=== PATIENT | male | born 1955 | race African-American/Black ===

== ENCOUNTER 2025-04-28 04:25 | Inpatient (IN) | payer OTHER ==
[~2025-04-28] VITALS: Ht 172.7 cm; Wt 71.7 kg
[2025-04-28 04:27] VITALS: O2SAT 100
[2025-04-28 05:24] LABS: HEMATOCRIT. 33.9 % (42.0-52.0); HEMOGLOBIN. 11.3 g/dL (14.0-18.0); MEAN PLATELET VOLUME 8.0 fl (7.4-10.4); PLATELET 258 x1000/uL (130-400); RED BLOOD CELL COUNT 3.52 mill/uL (4.7-6.1); RED CELL DISTRIBUTION WIDTH 15.0 % (11.6-14.6)
[2025-04-28 05:29] LABS: CREATININE 1.9 mg/dL (0.6-1.3)
[2025-04-28 05:30] LABS: ASPARTATE AMINOTRANSFERASE 54 IU/L (<34); ETHANOL BLOOD < 10 mg/dL (<10); UREA NITROGEN BLOOD 18 mg/dL (9-23)
[2025-04-28 05:31] LABS: BILIRUBIN DIRECT 0.2 mg/dL (<=3.0)
[2025-04-28 05:32] LABS: BILIRUBIN TOTAL 0.5 mg/dL (0.1-1.0); PHOSPHORUS 2.8 mg/dL (2.5-4.9); PROTEIN TOTAL 6.6 g/dL (6.0-8.3)
[2025-04-28 06:09] LABS: INR 1.0
[2025-04-28 06:15] LABS: BG BASE EXCESS 0.6 mmol/L (-2.0-3.0); BG CARBOXYHEMOGLOBIN 1.4 % (0.5-1.5); BG DEOXYHEMOGLOBIN 3.3 % (0.0-5.0); BG FRACTION INSPIRED OXYGEN 21; BG HCO3 ACT 25.2 mmol/L (21.0-28.0); BG METHEMOGLOBIN 0.1 % (0.5-1.5); BG OXYGEN SATURATION 96.6 % (94.0-98.0); BG OXYHEMOGLOBIN 95.2 % (94.0-98.0); BG PCO2 40.4 mmHg (35.0-48.0); BG PH 7.413 (7.350-7.450); BG PO2 87.7 mmHg (83.0-108.0); BG SAMPLE SITE RIGHT BRACHIAL; BG TOTAL HEMOGLOBIN 11.9 g/dL (13.5-17.5); BG VENT MODE ROOM AIR
[2025-04-28 06:21] LABS: CLARITY URINE CLEAR (CLEAR); COLOR URINE YELLOW (YELLOW); GLUCOSE URINE NEGATIVE (NEGATIVE); KETONES URINE NEGATIVE (NEGATIVE); LEUKOCYTE ESTERASE URINE NEGATIVE (NEGATIVE); NITRITE URINE NEGATIVE (NEGATIVE); OCCULT BLOOD URINE NEGATIVE (NEGATIVE); PH URINE 8.5 (4.5-8.0); PROTEIN URINE 1+ (NEGATIVE); SPECIFIC GRAVITY URINE 1.009 (1.005-1.030); UROBILINOGEN URINE 0.2 E.U./dL (0.2-1.0)
[2025-04-28] MEDS ORDERED: DEXTROSE 50% WATER 50ML SYRINGE IV ONE (07:06)
[2025-04-28 07:10] LABS: *AMPHETAMINES SCREEN URINE NEGATIVE (NEGATIVE); *BARBITURATES SCREEN URINE NEGATIVE (NEGATIVE); *BENZODIAZEPINES SCREEN URINE NEGATIVE (NEGATIVE); *COCAINE SCREEN URINE NEGATIVE (NEGATIVE); CANNABINOID URINE SCREEN PRESUMPTIVE POSITIVE (NEGATIVE); ECSTASY MDMA SCREEN URINE NEGATIVE (NEGATIVE); METHADONE URINE SCREEN NEGATIVE (NEGATIVE); OPIATES URINE SCREEN NEGATIVE (NEGATIVE); PHENCYCLIDINE URINE SCREEN NEGATIVE (NEGATIVE)
[2025-04-28 07:23] LABS: BACTERIA URINE NONE SEEN; RBC URINE 0-2 /hpf (0-2); SQUAMOUS EPITHELIAL CELL URINE NONE SEEN /lpf (RARE/1+); WBC URINE 0-2 /hpf (0-2)
[2025-04-28] MEDS ORDERED: IOHEXOL-350 100 ML BOTTLE ONE (07:35)
[2025-04-28 08:28] LABS: INR 1.1
[2025-04-28 08:34] LABS: ETHANOL BLOOD < 10 mg/dL (<10)
[2025-04-28 08:35] LABS: TROPONIN I HIGH SENSITIVITY 13 ng/L (3.0-53)
[2025-04-28 08:36] LABS: ASPARTATE AMINOTRANSFERASE 47 IU/L (<34); BILIRUBIN DIRECT 0.2 mg/dL (<=3.0); BILIRUBIN TOTAL 0.5 mg/dL (0.1-1.0); PROTEIN TOTAL 5.9 g/dL (6.0-8.3)
[2025-04-28 10:05] LABS: TROPONIN I HIGH SENSITIVITY 14 ng/L (3.0-53)
[2025-04-28 10:15] LABS: BAND% 1.0 % (1.0-6.0); EOSINOPHILS % MANUAL 2.0 % (0.0-5.0); LYMPHOCYTES % MANUAL 10.0 % (20.0-50.0); MONOCYTES % MANUAL 4.0 % (2.0-8.0); NEUTROPHILS % MANUAL 83.0 % (45.0-75.0); PLATELET ESTIMATE NORMAL
[2025-04-28] MEDS ORDERED: LORAZEPAM 2MG/ML UD SYRINGE IV PRN (11:45)
[2025-04-28 12:00] VITALS: BP 141/93; PULSE 57; RESP 18; TEMP 36.5292
[2025-04-28 12:11] LABS: LDL CHOLESTEROL 33 mg/dL (5-100); TRIGLYCERIDE 32 mg/dL (0-150)
[2025-04-28] MEDS ORDERED: MAGNESIUM/ALUMINUM HYDROXIDE/SIMETHICONE 30ML UDC PO PRN (12:15)
[2025-04-28] MEDS ORDERED: LEVETIRACETAM 500 MG in SODIUM CHLORIDE 0.9% 100 ML IV SCH (12:15)
[2025-04-28] MEDS ORDERED: GUAIFENESIN 200MG/10ML SUGAR FREE UDC PO PRN (12:15)
[2025-04-28] MEDS ORDERED: IPRATROPIUM/ALBUTEROL 0.5-3(2.5)MG/3ML NEB HHN PRN (12:15)
[2025-04-28] MEDS ORDERED: ACETAMINOPHEN 325MG TABLET PO PRN ×2 (12:15)
[2025-04-28] MEDS ORDERED: DOCUSATE SODIUM 100MG CAPSULE PO PRN (12:15)
[2025-04-28] MEDS ORDERED: LOSARTAN 25 MG TABLET PO SCH (13:00)
[2025-04-28] MEDS: LEVETIRACETAM 500MG PREMIX 100 ML IV SCH (13:35)
[2025-04-28] MEDS: SUCRALFATE 1G TABLET PO SCH (13:35)
[2025-04-28] MEDS: SODIUM CHLORIDE 0.45% 1,000 ML IV ONE (13:36)
[2025-04-28 13:38] LABS: FOLIC ACID (FOLATE) SERUM 13.10 ng/mL (>5.38)
[2025-04-28 14:10] LABS: VITAMIN B12 SERUM > 2000 pg/mL (211-911)
[2025-04-28] MEDS ORDERED: [UNRECOGNIZED DRUG - CODE] (14:58)
[2025-04-28] MEDS ORDERED: TAMSULOSIN (14:58)
[2025-04-28] MEDS ORDERED: BUDE10.32 IH (14:58)
[2025-04-28] MEDS ORDERED: SILD100T69 PO (14:58)
[2025-04-28] MEDS ORDERED: MIRT-90 PO (14:58)
[2025-04-28] MEDS ORDERED: WARF-53 PO (14:58)
[2025-04-28] MEDS ORDERED: ENOX100D4 SUBCUT (14:58)
[2025-04-28] MEDS ORDERED: PANT20TA17 PO (14:58)
[2025-04-28] MEDS ORDERED: ESCI5TAB16 PO (14:58)
[2025-04-28] MEDS ORDERED: HYDR-4001 PO (14:58)
[2025-04-28] MEDS ORDERED: LOSA25TA26 PO (14:58)
[2025-04-28] MEDS ORDERED: SUCR1ORA15 PO (14:58)
[2025-04-28 16:00] VITALS: BP 173/66; PULSE 57; RESP 18; TEMP 36.5; O2SAT 100
[2025-04-28] MEDS: ENOXAPARIN 80MG/0.8ML SYR SUBCUT SCH (16:01)
[2025-04-28] MEDS: HYDRALAZINE 20MG/ML VIAL IV PRN (17:01)
[2025-04-28] MEDS: WARFARIN SODIUM 5MG TABLET PO SCH (18:00)
[2025-04-28 20:00] VITALS: BP 110/89; PULSE 69; RESP 18; TEMP 35.6; O2SAT 96
[2025-04-28] MEDS ORDERED: ATORVASTATIN CALCIUM 40MG TABLET PO SCH (21:00)
[2025-04-28] MEDS: ATORVASTATIN CALCIUM 40MG TABLET PO SCH (21:20)
[2025-04-28] MEDS: AMLODIPINE 5MG TABLET PO SCH (21:21)
[2025-04-28] MEDS: MELATONIN 3MG TABLET PO SCH (23:04)
[2025-04-29] VITALS (7 sets, daily range): BP systolic 122–161; BP diastolic 57–89; PULSE 56–74; RESP 16–20; TEMP 36.2–37.9; O2SAT 96–100
[2025-04-29 06:18] LABS: INR 1.0
[2025-04-29 06:27] LABS: CREATININE 1.6 mg/dL (0.6-1.3)
[2025-04-29 06:28] LABS: T4 FREE 1.25 ng/dL (0.89-1.76)
[2025-04-29 06:29] LABS: UREA NITROGEN BLOOD 14.0 mg/dL (9-23)
[2025-04-29 06:57] LABS: BASOPHILS % 0.4 % (0.0-2.0); EOSINOPHILS % 0.4 % (0.0-5.0); HEMATOCRIT. 32.6 % (42.0-52.0); HEMOGLOBIN. 11.1 g/dL (14.0-18.0); LYMPHOCYTES % 15.6 % (20.0-50.0); MEAN PLATELET VOLUME 8.4 fl (7.4-10.4); MONOCYTES % 7.4 % (2.0-8.0); NEUTROPHILS % 76.2 % (40.0-76.0); PLATELET 240 x1000/uL (130-400); RED BLOOD CELL COUNT 3.45 mill/uL (4.7-6.1); RED CELL DISTRIBUTION WIDTH 14.6 % (11.6-14.6)
[2025-04-29] MEDS: LOSARTAN 25 MG TABLET PO SCH (08:45)
[2025-04-29] MEDS: PANTOPRAZOLE SODIUM 40 MG/VIAL IV SCH (08:46)
[2025-04-29] MEDS: TAMSULOSIN HCL 0.4MG SR CAPSULE PO SCH (08:46)
[2025-04-29] MEDS: ASPIRIN 81MG TABLET PO SCH (08:46)
[2025-04-29] MEDS: WARFARIN SODIUM 10MG TABLET PO SCH (17:12)
== END 2025-04-29 21:15 | disposition short-term general hospital (02) | DRG 637 ==
LOC: ER 04:25 → EDBEDREQ 10:33 → EDBEDREQTM 10:33 → ENRESERV 10:49 → 8WST 10:55
PROVIDERS: ADMIT Hospitalist; ATTEND Hospitalist
DX: E11.649 Type 2 diabetes mellitus with hypoglycemia without coma (principal); G92.8 Other toxic encephalopathy; G40.A09 Absence epileptic syndrome, not intractable, without status epilepticus; I65.21 Occlusion and stenosis of right carotid artery; I10 Essential (primary) hypertension; D64.9 Anemia, unspecified; J44.9 Chronic obstructive pulmonary disease, unspecified; Z79.01 Long term (current) use of anticoagulants; Z79.82 Long term (current) use of aspirin; Z79.899 Other long term (current) drug therapy; Z85.46 Personal history of malignant neoplasm of prostate; Z86.73 Personal history of transient ischemic attack (TIA), and cerebral infarction without residual deficits; Z87.11 Personal history of peptic ulcer disease; Z95.2 Presence of prosthetic heart valve
CPT/HCPCS: 36415; 36600; 70496; 70498; 71045; 76770; 80048; 80061; 80076; 80305; 80307; 80320; 80329; 81003; 82140; 82375; 82550; 82607; 82728; 82746; 82805; 82962; 83036; 83540; 83550; 83735; 83880; 84100; 84439; 84443; 84484; 85025; 85044; 93005; 93970; 94640; 97165; 99291; J0360; J1650; J1953; J2470; Q9967; G0480